=== PATIENT | female | born 1955 | race Caucasian/White ===

== ENCOUNTER 2018-01-06 15:37 | Emergency (ER) | payer OTHER ==
[2018-01-06] MEDS: AMPICILLIN SOD/SULBACTAM SOD 3 GM in D5W MINI-BAG PLUS 100 ML IV (18:30)
[2018-01-06] MEDS: NS 1,000 ML IV (18:30)
[2018-01-06 18:45] LABS: BASO % 0.3 % (0.0-1.0); EOS # 0.2 10^3/uL (0.0-0.50); EOS % 1.8 % (0.0-3.0); HEMATOCRIT 42.6 % (36.0-47.0); HEMOGLOBIN 13.7 g/dl (12.0-15.5); IMMATURE GRANULOCYTE % 0.6 % (0-3.0); LYMPH # 2.6 10^3/uL (1.5-4.5); LYMPH % 23.4 % (24.0-44.0); MEAN CORPUSCULAR HEMOGLOBIN 29.5 pg (27.0-33.0); MEAN CORPUSCULAR HGB CONC 32.2 g/dl (32.0-36.5); MEAN CORPUSCULAR VOLUME 91.8 fl (80.0-96.0); MONO # 0.8 10^3/uL (0.0-0.8); MONO % 7.2 % (0.0-5.0); NEUTROPHILS # 7.3 10^3/uL (1.8-7.7); NEUTROPHILS % 66.7 % (36.0-66.0); PLATELET COUNT, AUTOMATED 365 10^3/uL (150-450); RED BLOOD COUNT 4.64 10^6/uL (4.00-5.40); RED CELL DISTRIBUTION WIDTH 12.4 % (11.5-14.5); WHITE BLOOD COUNT 10.9 10^3/uL (4.0-10.0)
[2018-01-06 19:02] LABS: ANION GAP 10 MEQ/L (8-16); BLOOD UREA NITROGEN 15 MG/DL (7-18); C REACTIVE PROTEIN QUANTITATIV 1.73 MG/DL (0.00-0.30); CALCIUM LEVEL 9.6 MG/DL (8.8-10.2); CARBON DIOXIDE LEVEL 28 MEQ/L (21-32); CHLORIDE LEVEL 101 MEQ/L (98-107); CREATININE FOR GFR 0.94 MG/DL (0.55-1.30); GLOMERULAR FILTRATION RATE > 60.0 (>45); GLUCOSE, FASTING 108 MG/DL (70-100); POTASSIUM SERUM 4.3 MEQ/L (3.5-5.1); SODIUM LEVEL 139 MEQ/L (136-145)
== END 2018-01-06 19:37 | disposition home or self-care (01) ==
LOC: M ED 15:37
DX: K04.7 Periapical abscess without sinus (principal); I10 Essential (primary) hypertension; J45.909 Unspecified asthma, uncomplicated; E78.00 Pure hypercholesterolemia, unspecified; K21.9 Gastro-esophageal reflux disease without esophagitis; F32.9 Major depressive disorder, single episode, unspecified; Z86.73 Personal history of transient ischemic attack (TIA), and cerebral infarction without residual deficits; F17.200 Nicotine dependence, unspecified, uncomplicated; Z79.899 Other long term (current) drug therapy; Z79.02 Long term (current) use of antithrombotics/antiplatelets
CPT/HCPCS: 80048

== ENCOUNTER → 2018-10-09 | Outpatient (REF) | payer MEDICAID ==
[~2018-10-09] MED LIST: AUGM875T28 PO; AZEL0.055 NARES; BUPR200T PO; CLOP75TA2 PO; CROM5SOL OU; FAMO1TAB11 PO; FLON1SPR NARES; FLUT22IN INH; HYDR25TAB PO; LORA10TA3 PO; LOSA50TA88 PO; MIRA3350 PO; MONT10TA2 PO; PRAV80TA2 PO; SUCR1TAB56 PO; VITA2000 PO; ZOLO100T PO
== END ==
LOC: M LAB LCGH 11:32
DX: Z12.4 Encounter for screening for malignant neoplasm of cervix (principal); N95.2 Postmenopausal atrophic vaginitis

== ENCOUNTER → 2020-08-05 | Outpatient (CLI) | payer MEDICARE, OTHER ==
[~2020-08-05] MED LIST changes: +ARIP1TAB PO; -BUPR200T PO; +BUPR200T2 PO; +HYDR-3490 PO; -HYDR25TAB PO; +MONT10TA10 PO; -MONT10TA2 PO; +TUMS500C PO; +VITA200016 PO
--- NOTE | 2020-08-05 07:53 | REP ---
INDICATION: LEUKOCYTOSIS, ELEVATED WBC COUNT. COMPARISON: None. TECHNIQUE: Complete abdomen ultrasound. FINDINGS: The patient has a cholecystectomy. There is no intrahepatic or extrahepatic biliary duct dilatation. The common biliary duct measures 7.6 mm in diameter which is normal in a post cholecystectomy patient. The liver is normal size measuring 15 cm craniocaudad in the midclavicular line. The hepatic parenchyma is homogeneous. No hepatic masses or cysts are identified. The hepatic parenchyma is mildly echogenic, suggestive of hepato steatosis. The visualized portions of the pancreatic body and head are unremarkable. The tail is obscured. The spleen is normal size measuring 12.4 x 10.8 x 4.8 cm. The splenic index is 643. This is in the normal range. The right kidney measures 10.6 x 5.1 x 5.2 cm. The left kidney measures 10.2 x 5.5 x 4.5 cm. There is no calculus or hydronephrosis on the right or the left. There are no solid or cystic renal masses. The proximal abdominal aorta demonstrates no aneurysm. The mid and distal aorta are obscured. There is no abdominal free fluid. IMPRESSION: Mildly echogenic hepatic parenchyma suggestive of hepato steatosis. The tail of the pancreas is obscured. The mid and distal aorta are obscured. <Electronically signed by Chauncey Sawyer > 08/05/20 [id number]
== END ==
LOC: M RAD 06:50
PROVIDERS: ATTEND Internal Medicine Hematology & Oncology
DX: D72.829 Elevated white blood cell count, unspecified (principal)

== ENCOUNTER → 2020-12-02 | Outpatient (CLI) | payer MEDICARE, MEDICAID ==
[~2020-12-02] MED LIST changes: +DEPA1CAP PO; +LOSA50TA28 PO; -LOSA50TA88 PO; -MONT10TA10 PO; +MONT10TA97 PO; +SERT25TA21; +VENL150C43; +VENL50TA2 PO; +VENL75CA47
== END ==
LOC: M RAD 10:03
PROVIDERS: ATTEND Internal Medicine Hematology & Oncology
DX: Z12.2 Encounter for screening for malignant neoplasm of respiratory organs (principal); Z87.891 Personal history of nicotine dependence; R91.1 Solitary pulmonary nodule

== ENCOUNTER → 2021-03-04 | Outpatient (CLI) | payer MEDICARE, MEDICAID ==
[~2021-03-04] MED LIST changes: -DEPA1CAP PO; -LOSA50TA28 PO; +LOSA50TA88 PO; +MONT10TA10 PO; -MONT10TA97 PO; -SERT25TA21; -VENL75CA47
--- NOTE | 2021-03-04 13:47 | REP ---
INDICATION: F/U- CAT 4 CTLD. COMPARISON: Low-dose screening CT 12/02/2020 TECHNIQUE: Noncontrast scanning through the chest with coronal and sagittal reconstructions. FINDINGS: The 6 mm pleural based nodule in the left lower lobe superior segment on the previous study is no longer visible. Remainder of the left lung the entire right lung are clear and without other nodules, infiltrates, pleural effusion, pleural thickening or calcified pleural plaque there is no evidence of the pneumothorax heart is not enlarged. There is no pericardial thickening or effusion. The aorta is without aneurysm. No mediastinal or hilar pathologic sized adenopathy. No axillary or supraclavicular mass is identified. Tracheal airway intact. Bone windows show spine some degenerative changes but no destructive lesion or fracture sternum, manubrium, medial clavicles, visualized portions of scapula, humeral heads and ribs are without fracture or destructive lesion. The upper abdomen shows no hepatosplenomegaly, focal hepatic or splenic mass nor ascites. The gallbladder surgically absent. The visualized pancreas, adrenal glands and upper poles of kidneys are normal. Stomach without hiatal hernia. The visualized bowel loops unremarkable. IMPRESSION: 1. Complete clearing of the 6 mm pleural based nodule superior segment left lower lobe on the previous CT 12/02/2020. No further follow-up for this particular finding is necessary. However if the patient is at high risk for lung malignancy, and annual low-dose screening CT would be recommended. 2. Remainder of the exam shows no acute cardiopulmonary change. Upper abdomen without acute finding. <Electronically signed by Sb Mortensen > 03/04/21 [id number]
== END ==
LOC: M RAD 09:51
PROVIDERS: ATTEND Internal Medicine Hematology & Oncology
DX: Z09 Encounter for follow-up examination after completed treatment for conditions other than malignant neoplasm (principal); Z87.09 Personal history of other diseases of the respiratory system

== ENCOUNTER → 2022-06-11 | Outpatient (CLI) | payer MEDICAID, MEDICARE ==
[~2022-06-11] MED LIST changes: -BUPR200T2 PO; +BUPR200T41 PO; +DEPA1CAP PO; +LAMO25TA4; +LOSA50TA28 PO; -LOSA50TA88 PO; -MONT10TA10 PO; +MONT10TA97 PO; +SERT25TA21; +VENL75CA47
== END ==
LOC: M RAD 12:07
PROVIDERS: ATTEND Internal Medicine Medical Oncology
DX: C91.10 Chronic lymphocytic leukemia of B-cell type not having achieved remission (principal); Z87.891 Personal history of nicotine dependence

== ENCOUNTER → 2022-07-01 | Outpatient (CLI) | payer MEDICARE, OTHER | LOC: M RAD 10:40 | PROVIDERS: ATTEND Physician Assistant | DX: J32.8 Other chronic sinusitis (principal); J34.2 Deviated nasal septum; J33.8 Other polyp of sinus ==

== ENCOUNTER → 2023-07-06 | Outpatient (CLI) | payer MEDICARE, OTHER ==
[~2023-07-06] MED LIST changes: +ACET1TAB55 PO; +AMLO2.5T3; +CROM4SOL4 OU; -CROM5SOL OU; +DULC5TAB PO; +GNPSOL OP; -LAMO25TA4; +LAMO25TA4 PO; +LINZ290C PO; +METO1TAB32 PO; +MILKSUS3 PO; +MULT400T10 PO; +POTA10CA60 PO; +SENN-186 PO; +TORS10TA3 PO; +VITMTA PO
== END ==
LOC: M RAD 08:34
PROVIDERS: ATTEND Internal Medicine Medical Oncology
DX: Z12.2 Encounter for screening for malignant neoplasm of respiratory organs (principal); Z87.891 Personal history of nicotine dependence; J84.10 Pulmonary fibrosis, unspecified; R91.8 Other nonspecific abnormal finding of lung field; I25.10 Atherosclerotic heart disease of native coronary artery without angina pectoris

== ENCOUNTER 2024-12-27 14:44 | Inpatient (IN) | payer MEDICARE, OTHER ==
[~2024-12-27] VITALS: Ht 167.6 cm; Wt 82.1 kg
[~2024-12-27 14:44] MED LIST changes: -AZEL0.055 NARES; +AZEL1SPR4 NARES; +LAMO-18 PO; -LAMO25TA4 PO; -POTA10CA60 PO; +POTA10CA70 PO; -PRAV80TA2 PO; +PRAV80TA75 PO
[2024-12-27 17:26] LABS: PLATELET COUNT, AUTOMATED 486 10^3/uL (150-450)
[2024-12-27 17:37] LABS: ETHYL ALCOHOL (ETHANOL) < 0.003 % (0.000-0.010)
[2024-12-27 17:39] LABS: ALT/SGPT 16 U/L (7.0-40); AST/SGOT 29 U/L (<34); CALCIUM LEVEL 10.1 MG/DL (8.3-10.6); CARBON DIOXIDE LEVEL 29 MMOL/L (20-31); CHLORIDE LEVEL 100 MMOL/L (98-107); CREATININE FOR GFR 0.72 MG/DL (0.55-1.30); GLOMERULAR FILTRATION RATE 89.9 (>39); POTASSIUM SERUM 3.8 MMOL/L (3.5-5.1); SALICYLATE LEVEL < 3.0 MG/DL (<30); SODIUM LEVEL 141 MMOL/L (136-145)
[2024-12-27] MEDS ORDERED: ACET-1415 PO (18:26)
[2024-12-27] MEDS ORDERED: DIVA125C6 PO (18:26)
[2024-12-27] MEDS ORDERED: TRAZ-257 PO (18:26)
[2024-12-27] MEDS ORDERED: MIRA3350 PO (18:26)
[2024-12-27] MEDS ORDERED: LUBI24CA32 PO (18:26)
[2024-12-27] MEDS ORDERED: IPRA0.00 INH (18:26)
[2024-12-27] MEDS ORDERED: MONT-5 PO (18:26)
[2024-12-27] MEDS ORDERED: VITATAB73 PO (18:26)
[2024-12-27] MEDS ORDERED: LEXA1TAB PO (18:26)
[2024-12-27] MEDS ORDERED: PANT-23 PO (18:26)
[2024-12-27] MEDS ORDERED: RA M10TA PO (18:26)
[2024-12-27] MEDS ORDERED: HOME MED LIST COMPLETE! XX SCH (18:30)
[2024-12-27 19:50] LABS: KETONE, URINE AUTO RFX TRACE mg/dL (NEGATIVE); MUCUS, URINE RFX SMALL (NEGATIVE); RBC, URINE AUTO RFX 35 /HPF (0-3); SQUAM EPITHELIAL CELL UR AURFX 0 /HPF (0-6)
[2024-12-27 19:51] LABS: LEUKOCYTE ESTERASE UR AUTO RFX 3+ (NEGATIVE); NITRITE, URINE AUTO RFX POSITIVE (NEGATIVE); WBC, URINE AUTO RFX TNTC /HPF (0-3)
[2024-12-27 20:06] LABS: AMPHETAMINES LEVEL URINE NEGATIVE (NEGATIVE); BARBITURATES URINE NEGATIVE (NEGATIVE)
[2024-12-27 20:07] LABS: BENZODIAZEPINES URINE NEGATIVE (NEGATIVE); CANNABINOIDS URINE NEGATIVE (NEGATIVE); COCAINE METABOLITE URINE NEGATIVE (NEGATIVE); METHADONE URINE NEGATIVE (NEGATIVE); OPIATES URINE NEGATIVE (NEGATIVE); PHENCYCLIDINE URINE NEGATIVE (NEGATIVE)
[2024-12-27] MEDS: CEFDINIR 300 MG CAP PO ONE (20:23)
[2024-12-27] MEDS ORDERED: CEFD300C PO (21:00)
[2024-12-27] MEDS: traZODone 100 MG TAB PO ONE (21:37)
[2024-12-28] MEDS: CEFDINIR 300 MG CAP PO SCH (09:00)
[2024-12-28] MEDS ORDERED: IPRATROPIUM 0.5 MG/ALBUTEROL 2.5 MG INH SOL UD 3 ML INH PRN (10:20)
[2024-12-28] MEDS: METOPROLOL SUCC. 25 MG *XL* TAB PO SCH (10:44)
[2024-12-28] MEDS: PANTOPRAZOLE 40MG TAB PO SCH (10:44)
[2024-12-28] MEDS: DIVALPROEX SPRINKLE 125 MG CAP PO SCH (10:44)
[2024-12-28] MEDS: ESCITALOPRAM OXALATE 10 MG TABLET PO SCH (10:45)
[2024-12-28] MEDS: HEPARIN SOD 5000 UNITS/ML 1 ML VIAL/SYRINGE SC SCH (20:32)
[2024-12-28] MEDS: cefTRIAXone SOD 1 GM in DEXTROSE 5% (D5W) ADV/MINI-BAG 50 ML IV SCH (20:33)
[2024-12-28] MEDS: MONTELUKAST 10 MG TAB PO SCH (20:33)
[2024-12-28] MEDS: PRAVASTATIN 20 MG TAB PO SCH (20:33)
[2024-12-28] MEDS: traZODone 100 MG TAB PO SCH (20:34)
[2024-12-28 22:15] VITALS: BP 160/87; TEMP 98.1; O2SAT 99
[2024-12-29 08:11] LABS: CALCIUM LEVEL 9.6 MG/DL (8.3-10.6); CARBON DIOXIDE LEVEL 31.0 MMOL/L (20-31); CHLORIDE LEVEL 100.0 MMOL/L (98-107); CREATININE FOR GFR 0.85 MG/DL (0.55-1.30); GLOMERULAR FILTRATION RATE 73.7 (>39); MAGNESIUM LEVEL 1.7 MG/DL (1.8-2.4); POTASSIUM SERUM 3.8 MMOL/L (3.5-5.1); SODIUM LEVEL 143.0 MMOL/L (136-145)
[2024-12-29] MEDS: MAG SULF 1GM/100ML (MAG RUN) 1 GM in IV 1 EA IV SCH (12:18)
[2024-12-29] MEDS: ACETAMINOPHEN 325 MG TAB PO PRN (13:23)
[2024-12-29 14:00] VITALS: BP 136/85; TEMP 98.1; O2SAT 98
[2024-12-29 19:39] VITALS: BP 155/90; TEMP 99; O2SAT 98
[2024-12-30 08:39] VITALS: BP 112/78; TEMP 98.8; O2SAT 97
[2024-12-30 09:00] LABS: CALCIUM LEVEL 9.0 MG/DL (8.3-10.6); CARBON DIOXIDE LEVEL 29.0 MMOL/L (20-31); CHLORIDE LEVEL 101.0 MMOL/L (98-107); CREATININE FOR GFR 0.8 MG/DL (0.55-1.30); GLOMERULAR FILTRATION RATE 79.2 (>39); MAGNESIUM LEVEL 2.0 MG/DL (1.8-2.4); POTASSIUM SERUM 4.0 MMOL/L (3.5-5.1); SODIUM LEVEL 142.0 MMOL/L (136-145)
[2024-12-30 14:00] VITALS: BP 138/91; TEMP 97.3; O2SAT 99
[2024-12-30 19:27] VITALS: BP 153/77; TEMP 99.1; O2SAT 98
[2024-12-30] MEDS: RAMELTEON 8 MG TAB PO PRN (20:59)
[2024-12-31 07:20] LABS: PLATELET COUNT, AUTOMATED 325 10^3/uL (150-450)
[2024-12-31 07:41] LABS: CALCIUM LEVEL 9.0 MG/DL (8.3-10.6); CARBON DIOXIDE LEVEL 29.0 MMOL/L (20-31); CHLORIDE LEVEL 100.0 MMOL/L (98-107); CREATININE FOR GFR 0.79 MG/DL (0.55-1.30); GLOMERULAR FILTRATION RATE 80.4 (>39); MAGNESIUM LEVEL 1.8 MG/DL (1.8-2.4); POTASSIUM SERUM 3.8 MMOL/L (3.5-5.1); SODIUM LEVEL 139.0 MMOL/L (136-145)
[2024-12-31 07:54] LABS: EOSINOPHILS 3 % (0-3); LYMPHOCYTES 69 % (16-44); MONOCYTES 1 % (0-5); NEUTROPHILS 27 % (28-66); PLATELET CLUMPS SMALL AMT; PLATELET ESTIMATE NORMAL (NORMAL)
[2024-12-31] MEDS: CEFDINIR 300 MG CAP PO SCH (09:25)
[2024-12-31 14:00] VITALS: BP 146/84; TEMP 98.4; O2SAT 99
[2024-12-31 19:38] VITALS: BP 130/65; TEMP 98.1; O2SAT 99
[2025-01-01 06:36] VITALS: BP 133/66; TEMP 98.2; O2SAT 96
[2025-01-01 07:17] LABS: CALCIUM LEVEL 9.6 MG/DL (8.3-10.6); CARBON DIOXIDE LEVEL 28.0 MMOL/L (20-31); CHLORIDE LEVEL 104.0 MMOL/L (98-107); CREATININE FOR GFR 0.72 MG/DL (0.55-1.30); GLOMERULAR FILTRATION RATE 89.9 (>39); MAGNESIUM LEVEL 1.9 MG/DL (1.8-2.4); POTASSIUM SERUM 4.1 MMOL/L (3.5-5.1); SODIUM LEVEL 144.0 MMOL/L (136-145)
[2025-01-01] MEDS ORDERED: RAME8TAB2 PO (08:12)
[2025-01-01] MEDS ORDERED: CEFD300CAP PO (08:12)
[2025-01-01 14:00] VITALS: TEMP 97.9; O2SAT 98
[2025-01-01 21:50] VITALS: BP 149/74; TEMP 97.9; O2SAT 97
[2025-01-02 05:43] VITALS: BP 146/81; TEMP 98.4; O2SAT 96
[2025-01-02 07:38] LABS: CALCIUM LEVEL 9.8 MG/DL (8.3-10.6); CARBON DIOXIDE LEVEL 25.0 MMOL/L (20-31); CHLORIDE LEVEL 102.0 MMOL/L (98-107); CREATININE FOR GFR 0.72 MG/DL (0.55-1.30); GLOMERULAR FILTRATION RATE 89.9 (>39); MAGNESIUM LEVEL 1.8 MG/DL (1.8-2.4); POTASSIUM SERUM 4.6 MMOL/L (3.5-5.1); SODIUM LEVEL 144.0 MMOL/L (136-145)
[2025-01-02] MEDS: DIVALPROEX 250 MG TAB PO ONE (20:35)
[2025-01-02 20:49] VITALS: BP 154/84; TEMP 97.9
[2025-01-03 06:21] VITALS: BP 158/85; TEMP 97.6; O2SAT 96
[2025-01-03 07:57] LABS: PLATELET COUNT, AUTOMATED 331 10^3/uL (150-450)
[2025-01-03 07:57] LABS: CALCIUM LEVEL 9.8 MG/DL (8.3-10.6); CARBON DIOXIDE LEVEL 28.0 MMOL/L (20-31); CHLORIDE LEVEL 101.0 MMOL/L (98-107); CREATININE FOR GFR 0.78 MG/DL (0.55-1.30); GLOMERULAR FILTRATION RATE 81.7 (>39); MAGNESIUM LEVEL 1.8 MG/DL (1.8-2.4); POTASSIUM SERUM 4.1 MMOL/L (3.5-5.1); SODIUM LEVEL 142.0 MMOL/L (136-145)
[2025-01-03] MEDS: OLANZapine 5 MG TAB PO ONE (13:54)
[2025-01-03] MEDS: DIVALPROEX SPRINKLE 125 MG CAP PO SCH (16:31)
[2025-01-03] MEDS: OLANZapine 5 MG TAB PO SCH (22:23)
[2025-01-04 09:48] LABS: CALCIUM LEVEL 9.8 MG/DL (8.3-10.6); CARBON DIOXIDE LEVEL 27.0 MMOL/L (20-31); CHLORIDE LEVEL 101.0 MMOL/L (98-107); CREATININE FOR GFR 0.83 MG/DL (0.55-1.30); GLOMERULAR FILTRATION RATE 75.8 (>39); MAGNESIUM LEVEL 1.8 MG/DL (1.8-2.4); POTASSIUM SERUM 4.1 MMOL/L (3.5-5.1); SODIUM LEVEL 141.0 MMOL/L (136-145)
[2025-01-04] MEDS: OLANZapine INTRAMUSCULAR 10MG VIAL IM PRN (12:11)
[2025-01-05 07:32] LABS: CALCIUM LEVEL 9.5 MG/DL (8.3-10.6); CARBON DIOXIDE LEVEL 27.0 MMOL/L (20-31); CHLORIDE LEVEL 100.0 MMOL/L (98-107); CREATININE FOR GFR 0.87 MG/DL (0.55-1.30); GLOMERULAR FILTRATION RATE 71.6 (>39); MAGNESIUM LEVEL 1.7 MG/DL (1.8-2.4); POTASSIUM SERUM 4.3 MMOL/L (3.5-5.1); SODIUM LEVEL 140.0 MMOL/L (136-145)
[2025-01-05 19:42] VITALS: BP 149/69; TEMP 98.6; O2SAT 97
[2025-01-06 06:15] VITALS: BP 138/79; TEMP 98.4; O2SAT 98
[2025-01-06 09:39] LABS: PLATELET COUNT, AUTOMATED 278 10^3/uL (150-450)
[2025-01-06 10:05] LABS: ALT/SGPT 31.0 U/L (7.0-40); AST/SGOT 22.0 U/L (<34); CALCIUM LEVEL 9.8 MG/DL (8.3-10.6); CARBON DIOXIDE LEVEL 28.0 MMOL/L (20-31); CHLORIDE LEVEL 100.0 MMOL/L (98-107); CREATININE FOR GFR 0.81 MG/DL (0.55-1.30); GLOMERULAR FILTRATION RATE 78.0 (>39); POTASSIUM SERUM 4.1 MMOL/L (3.5-5.1); SODIUM LEVEL 140.0 MMOL/L (136-145)
[2025-01-06] MEDS ORDERED: PILL CUTTER 1 EACH XX PRN (14:30)
[2025-01-06] MEDS: DIVALPROEX SPRINKLE 125 MG CAP PO SCH (16:10)
[2025-01-06] MEDS: OLANZapine 5 MG TAB PO SCH (20:13)
[2025-01-08] MEDS: FLUTICASONE PROPIONATE 0.05% NASAL SPRAY 16 GM NARES PRN (00:19)
[2025-01-08 10:03] VITALS: BP 116/61; TEMP 98.4; O2SAT 97
[2025-01-09 06:33] VITALS: BP 119/62; TEMP 96.8; O2SAT 91
[2025-01-10 06:18] VITALS: BP 146/59; TEMP 97.5; O2SAT 94
[2025-01-10 07:10] LABS: PLATELET COUNT, AUTOMATED 224 10^3/uL (150-450)
[2025-01-11 06:24] VITALS: BP 125/75; TEMP 97.6; O2SAT 96
[2025-01-12] MEDS: PREPARATION H SUPP (HEMORRHOID) PR SCH (20:27)
[2025-01-14 06:41] VITALS: BP 138/75; TEMP 98.1; O2SAT 100
[2025-01-15 06:05] VITALS: BP 103/44; TEMP 98.1; O2SAT 96
[2025-01-15] MEDS: MIRALAX *UNIT DOSE* 17 GM PACKET PO PRN (09:50)
[2025-01-16 06:51] VITALS: BP 141/70; TEMP 96.8; O2SAT 92
[2025-01-16] MEDS ORDERED: BISACODYL 10 MG SUPP PR PRN (12:35)
[2025-01-16] MEDS: FLEET ENEMA PR PRN (15:44)
[2025-01-17 05:08] VITALS: BP 114/64; TEMP 97.7; O2SAT 95
[2025-01-18 06:03] VITALS: BP 123/44; TEMP 98.1; O2SAT 96
[2025-01-18] MEDS: OLANZapine 5 MG TAB PO PRN (10:17)
[2025-01-19 06:58] VITALS: BP 141/73; TEMP 98.1; O2SAT 97
[2025-01-19] MEDS: MAALOX 30 ML SUSP *UDC PO PRN (22:57)
[2025-01-20 10:58] VITALS: BP 120/67; TEMP 98.8; O2SAT 97
[2025-01-21 06:31] VITALS: BP 155/56; TEMP 98.2; O2SAT 98
[2025-01-21 09:00] VITALS: BP 105/52
[2025-01-22 06:02] VITALS: BP 110/50; TEMP 97.7; O2SAT 96
[2025-01-22] MEDS ORDERED: OLAN1TAB16 PO (07:35)
[2025-01-22] MEDS ORDERED: DIVA125C6 PO (07:35)
[2025-01-22 09:00] VITALS: BP 112/59; TEMP 98.4; O2SAT 97
[2025-01-22] MEDS ORDERED: RAME8TAB2 PO (10:59)
== END 2025-01-22 11:35 | DRG 689 ==
LOC: EDBD 14:44 → M ED 14:44 → M ED INP 14:45 → M MS5PR 12-28 15:15 → OBSVTOIN 12-29 10:14
PROVIDERS: ADMIT Student in an Organized Health Care Education/Training Program; ATTEND Student in an Organized Health Care Education/Training Program
DX: N39.0 Urinary tract infection, site not specified (principal); G93.41 Metabolic encephalopathy; C91.10 Chronic lymphocytic leukemia of B-cell type not having achieved remission; F31.9 Bipolar disorder, unspecified; B96.20 Unspecified Escherichia coli [E. coli] as the cause of diseases classified elsewhere; Z86.73 Personal history of transient ischemic attack (TIA), and cerebral infarction without residual deficits; Z79.899 Other long term (current) drug therapy; Z88.8 Allergy status to other drugs, medicaments and biological substances; F41.9 Anxiety disorder, unspecified